=== PATIENT | male | born 1980 | race Caucasian/White ===

== ENCOUNTER 2016-11-05 08:20 | Emergency (ER) | payer OTHER ==
--- NOTE | 2016-11-05 08:54 | ED ORDER SUMMARY ---
..... Patient: CLYDE CHUNG OrderSheet [facility] VisitID: [id number] [place] [address] 36y, M Registration Date/Time: 11/05/2016 ORDER SHEET Weight: 86.1 kg (stated) Allergies: No Known Drug Allergy GENERAL ORDERS: MEDICATION ORDERS: Amoxicillin PO 500 mg (NOW) (08:52 11/05/2016 Katy AGUIRRE) (8:58 Vincenzo R.N.) Zofran ODT PO 8 mg (NOW) (08:53 11/05/2016 Katy AGUIRRE) (8:58 Vincenzo R.N.) IV FLUIDS: ORDER SHEET NOTES: [Electronically signed by Josh Swann R.N. (09:04 11/05/2016)] [Electronically signed by Pooja Stiles MD (09:10 11/05/2016)] [Electronically locked/signed by Josh Swann R.N. (09:04 11/05/2016)]
--- NOTE | 2016-11-05 08:54 | ED NURSING NOTES ---
Clinical Report - Nurses [facility] [address] [place] [address] 11/05/2016 8:23 Patient: CLYDE CHUNG TRIAGE Triage time 0831 AM. Chief Complaint: LEFT LOWER TOOTHACHE. Alert. No acute distress. SEPSIS SCREEN: Sepsis Screen. Negative (no infection suspected/documented). --08:35 Josh Swann R.N. 08:30 11/05/16. BP: 148/81. HR: 99. RR: 16. O2 saturation: 99% on room air. Temp: 97.7 F. Pain level now: 06/14. --08:35 Josh Swann R.N. Weight: 86.1 kg stated. Height/Length: 75 inches Per Patient. BMI: 23.7. --08:30 Josh Swann R.N. Medications Adderall XR Oral. --08:34 Josh Swann R.N. Allergies No Known Drug Allergy. --08:34 Josh Swann R.N. History Arrived by private vehicle. Historian: patient. Unaccompanied. This started yesterday. ( Patient states that he broke one of his left lower molars a while ago and was told by his dentist that the tooth needed to be pulled. Patient admits to procrastinating and now an abscess has formed in that area. Patient states that he could not get a dental appointment until Sunday.). PAST MEDICAL HX: Dental caries. Abscess. SOCIAL HX: Heavy tobacco smoker (cigarette)- less than 1 pack per day. Regular alcohol use. FALL RISK ASSESSMENT: Fall risk assessment completed. No fall risk identified. NUTRITIONAL RISK ASSESSMENT: The nutritional risk assessment revealed no deficiencies. FUNCTIONAL ASSESSMENT: Functional assessment: no impairments noted. LEARNING NEEDS ASSESSMENT: The learning needs assessment revealed no barriers. SKIN INTEGRITY ASSESSMENT: Skin integrity risk assessment completed. No skin integrity risk identified. --08:35 Josh Swann R.N. PROBLEMS: no known problems. ADDITIONAL SURGERIES: Back Surgery. Dental Surgery. Hand Surgery. --08:34 Josh Swann R.N. PHYSICAL ASSESSMENT GENERAL / NEURO / PSYCH: Alert. Oriented X 4. Appears in no acute distress. HEENT: Pupils equal, round and reactive to light. Pharynx within normal limits. Voice within normal limits. Dental tenderness. Dental decay. Mucous membranes are pink. RESPIRATORY: Respirations not labored. CVS: Capillary refill less than 2 seconds. SKIN: Skin is warm and dry. Normal skin turgor. --08:35 Josh Swann R.N. Ambulatory to room. --08:35 Josh Swann R.N. NURSING PROGRESS NOTES The plan of care for this patient has been created. Head of bed elevated. Call light placed in reach. Bed placed in lowest position. Brakes of bed on. --08:40 Josh Swann R.N. 08:58 11/05/2016 Amoxicillin PO Capsules 500 mg given. Allergies verified and confirmed 5 rights. --08:58 Josh Swann R.N. 08:58 11/05/2016 Zofran ODT (Ondansetron) PO Oral Disintegrating Tablets 8 mg given. Allergies verified and confirmed 5 rights. --08:58 Josh Swann R.N. DISPOSITION / DISCHARGE Departure time: 0902 AM. Condition at departure: improved. The goals identified in the patient's plan of care were met. No learning barriers present. Discharge instructions provided and reviewed with the patient. Reviewed medication(s) side effects, precautions, dosing and course information. Reviewed referral to a dentist. Patient verbalized understanding. Written instructions provided in [place]. The patient was discharged home and unaccompanied at time of discharge. He left the Emergency Department ambulatory and via private vehicle. Patient driving. FALL RISK ASSESSMENT: Fall risk assessment completed. No fall risk identified. --09:03 Josh Swann R.N. Locked/Released at 11/05/2016 9:04 by Josh Swann R.N.
--- NOTE | 2016-11-05 08:54 | ED NURSING NOTES ---
Clinical Report - Nurses [facility] [address] [place] [address] 11/05/2016 8:23 Patient: CLYDE CHUNG TRIAGE Triage time 0831 AM. Chief Complaint: LEFT LOWER TOOTHACHE. Alert. No acute distress. SEPSIS SCREEN: Sepsis Screen. Negative (no infection suspected/documented). --08:35 Josh Swann R.N. 08:30 11/05/16. BP: 148/81. HR: 99. RR: 16. O2 saturation: 99% on room air. Temp: 97.7 F. Pain level now: 06/14. --08:35 Josh Swann R.N. Weight: 86.1 kg stated. Height/Length: 75 inches Per Patient. BMI: 23.7. --08:30 Josh Swann R.N. Medications Adderall XR Oral. --08:34 Josh Swann R.N. Allergies No Known Drug Allergy. --08:34 Josh Swann R.N. History Arrived by private vehicle. Historian: patient. Unaccompanied. This started yesterday. ( Patient states that he broke one of his left lower molars a while ago and was told by his dentist that the tooth needed to be pulled. Patient admits to procrastinating and now an abscess has formed in that area. Patient states that he could not get a dental appointment until Sunday.). PAST MEDICAL HX: Dental caries. Abscess. SOCIAL HX: Heavy tobacco smoker (cigarette)- less than 1 pack per day. Regular alcohol use. FALL RISK ASSESSMENT: Fall risk assessment completed. No fall risk identified. NUTRITIONAL RISK ASSESSMENT: The nutritional risk assessment revealed no deficiencies. FUNCTIONAL ASSESSMENT: Functional assessment: no impairments noted. LEARNING NEEDS ASSESSMENT: The learning needs assessment revealed no barriers. SKIN INTEGRITY ASSESSMENT: Skin integrity risk assessment completed. No skin integrity risk identified. --08:35 Josh Swann R.N. PROBLEMS: no known problems. ADDITIONAL SURGERIES: Back Surgery. Dental Surgery. Hand Surgery. --08:34 Josh Swann R.N. PHYSICAL ASSESSMENT GENERAL / NEURO / PSYCH: Alert. Oriented X 4. Appears in no acute distress. HEENT: Pupils equal, round and reactive to light. Pharynx within normal limits. Voice within normal limits. Dental tenderness. Dental decay. Mucous membranes are pink. RESPIRATORY: Respirations not labored. CVS: Capillary refill less than 2 seconds. SKIN: Skin is warm and dry. Normal skin turgor. --08:35 Josh Swann R.N. Ambulatory to room. --08:35 Josh Swann R.N. NURSING PROGRESS NOTES The plan of care for this patient has been created. Head of bed elevated. Call light placed in reach. Bed placed in lowest position. Brakes of bed on. --08:40 Josh Swann R.N. 08:58 11/05/2016 Amoxicillin PO Capsules 500 mg given. Allergies verified and confirmed 5 rights. --08:58 Josh Swann R.N. 08:58 11/05/2016 Zofran ODT (Ondansetron) PO Oral Disintegrating Tablets 8 mg given. Allergies verified and confirmed 5 rights. --08:58 Josh Swann R.N. DISPOSITION / DISCHARGE Departure time: 0902 AM. Condition at departure: improved. The goals identified in the patient's plan of care were met. No learning barriers present. Discharge instructions provided and reviewed with the patient. Reviewed medication(s) side effects, precautions, dosing and course information. Reviewed referral to a dentist. Patient verbalized understanding. Written instructions provided in [place]. The patient was discharged home and unaccompanied at time of discharge. He left the Emergency Department ambulatory and via private vehicle. Patient driving. FALL RISK ASSESSMENT: Fall risk assessment completed. No fall risk identified. --09:03 Josh Swann R.N. Locked/Released at 11/05/2016 9:04 by Josh Swann R.N.
--- NOTE | 2016-11-05 08:54 | ED ORDER SUMMARY ---
..... Patient: CLYDE CHUNG OrderSheet [facility] VisitID: [id number] [place] [address] 36y, M Registration Date/Time: 11/05/2016 ORDER SHEET Weight: 86.1 kg (stated) Allergies: No Known Drug Allergy GENERAL ORDERS: MEDICATION ORDERS: Amoxicillin PO 500 mg (NOW) (08:52 11/05/2016 Katy AGUIRRE) (8:58 Vincenzo R.N.) Zofran ODT PO 8 mg (NOW) (08:53 11/05/2016 Katy AGUIRRE) (8:58 Vincenzo R.N.) IV FLUIDS: ORDER SHEET NOTES: [Electronically signed by Josh Swann R.N. (09:04 11/05/2016)] [Electronically signed by Pooja Stiles MD (09:10 11/05/2016)] [Electronically locked/signed by Josh Swann R.N. (09:04 11/05/2016)]
--- NOTE | 2016-11-05 08:54 | ED CLINICAL REPORT ---
Clinical Report - Physicians/Mid Levels [facility] [address] [place] [address] 11/05/2016 8:23 Patient: CLYDE CHUNG Time Seen: 08:31. Arrived- By private vehicle. Historian- patient. HISTORY OF PRESENT ILLNESS Chief Complaint: DENTAL PAIN. This started several days ago, but has been going on for weeks, to a lesser degree and is still present. Pain described as moderate. No sore throat, mouth sores, nasal discharge or congestion or ear pain. No swollen face or facial pain. He has had toothache, swelling of the jaw and jaw pain. Similar symptoms previously: Recent medical care: ( Pt does state that he has an appt with his dentist on 11/07/16.). Not recently seen/assessed. REVIEW OF SYSTEMS No fever, eye discomfort, cough, difficulty breathing or chest pain. No diarrhea, abdominal pain, difficulty with urination, headache or fainting episodes. No joint pain, skin rash or enlarged lymph nodes. The patient has had nausea and vomiting. All systems otherwise negative, except as recorded above. PAST HISTORY Problems: Dental Caries. Abscess. Additional Surgeries: Back Surgery. Dental Surgery. Hand Surgery. Medications: Adderall XR Oral. Allergies: No Known Drug Allergy. SOCIAL HISTORY Smoker- current status unknown. Alcohol use. No drug use. ADDITIONAL NOTES The nursing notes have been reviewed. PHYSICAL EXAM Vital Signs: 11/05/2016 08:30 BP: 148/81. HR: 99. RR: 16. O2 saturation: 99%. Temp: 97.7 F. Pain level now: 8/10. Have been reviewed. Appearance: Alert. No acute distress. Head: Normal external inspection. Eyes: Pupils equal, round and reactive to light. Conjunctivae and eyelids normal. ENT: Severe, localized dental decay with gingival tenderness, induration and swelling. Nose normal. Lips normal. Gums normal. Neck: Normal inspection. Neck supple. Respiratory: No respiratory distress. Skin: Normal skin color. No rash. Normal skin turgor. Extremities: Extremities exhibit normal ROM. Neuro: Oriented X 3. No motor deficit. No sensory deficit. LABS, X-RAYS, AND EKG Pulse Oximetry: 11/05/2016 08:30 O2 saturation: 99%. (FIO2 - room air). Interpretation: normal. PROGRESS AND PROCEDURES Course of Care: Pt was given amoxicillin and Zofran. He is encouraged to keep his dental appointment. No emergent condition identified. Patient counseled in person regarding the patient's stable condition, diagnosis and need for follow-up. Concerns were addressed. Old medical records reviewed. Disposition: Discharged. Condition: stable. CLINICAL IMPRESSION Periapical dental abscess. No sinus tract or Loi's angina. INSTRUCTIONS Drink plenty of fluids. Warnings: GENERAL WARNINGS: Return or contact your physician immediately if your condition worsens or changes unexpectedly, if not improving as expected, or if other problems arise. Your Current Medications: CONTINUE TAKING THE FOLLOWING MEDICATIONS: Adderall XR Oral. Prescription Medications: Hydrocodone/APAP 5mg / 325mg: take 1-2 orally every 6 hours as needed for pain. Dispense twenty (20). No refill. Zofran (orally disintegrating tablets) 4 mg: take 1-2 orally every 6 hours as needed for nausea. Dispense twenty (20). No refill. Substitution is permissible. Amoxicillin 500 mg tablets: take 1 orally every 8 hours for 10 days. No refills. Follow-up: Follow up with a dentist as scheduled. Understanding of the discharge instructions verbalized by patient. (Electronically signed by Pooja Stiles MD 11/05/2016 9:10)
--- NOTE | 2016-11-05 09:10 | ED DISCHARGE INSTRUCTIONS ---
Patient: CLYDE CHUNG General Instructions [facility] VisitID: [id number] [place] [address] 36y, M Registration Date/Time: 11/05/2016 Periapical dental abscess. No sinus tract or Loi's angina. INSTRUCTIONS Drink plenty of fluids. Warnings: GENERAL WARNINGS: Return or contact your physician immediately if your condition worsens or changes unexpectedly, if not improving as expected, or if other problems arise. Your Current Medications: CONTINUE TAKING THE FOLLOWING MEDICATIONS: Adderall XR Oral. Prescription Medications: Hydrocodone/APAP 5mg / 325mg: take 1-2 orally every 6 hours as needed for pain. Dispense twenty (20). No refill. Zofran (orally disintegrating tablets) 4 mg: take 1-2 orally every 6 hours as needed for nausea. Dispense twenty (20). No refill. Substitution is permissible. Amoxicillin 500 mg tablets: take 1 orally every 8 hours for 10 days. No refills. Follow-up: Follow up with a dentist as scheduled. Understanding of the discharge instructions verbalized by patient. ADDITIONAL INFORMATION Dental Abscess A dental abscess is an infection of the tooth socket. It often starts with a crack or cavity in the tooth. A pocket of pus forms between the tooth and the bone. The infection causes pain and swelling of the gum, cheek or jaw. The pain is often made worse by drinking hot or cold fluids, or biting on hard foods. Pain may be felt in the facial sinus or in the ear. A severe infection can interfere with swallowing and breathing. In the emergency department or clinic, you will be started on an antibiotic. However, final treatment requires drainage of the pus. This can be done by removing the tooth or performing a root canal. A root canal is done by an oral surgeon and involves drilling an opening in the tooth to drain the pus. After the infection has healed, a crown is placed over the tooth. Home care The following guidelines will help you care for your abscess at home: Avoid hot and cold foods and liquids since your tooth may be sensitive to temperature changes. If your tooth is chipped or cracked, or if there is a large open cavity, applyoil of cloves(available [id number]-jkpodxz in drug stores) directly to the tooth to reduce pain. Some pharmacies carry an axql-djr-kqsjlge "toothache kit". This contains oil of cloves and a paste, which can be applied over the exposed tooth to decrease sensitivity. Apply an ice pack (ice cubes in a plastic bag, wrapped in a towel) over the injured area for 20 minutes every 12 hours the first day for pain relief. Continue this 34 times a day until the pain and swelling goes away. You may use acetaminophen or ibuprofen to control pain, unless another medicine was prescribed. If you have chronic liver or kidney disease or ever had a stomach ulcer or GI bleeding, talk with your doctor before using these medicines. An antibiotic will be prescribed. Take it as directed until completed, even if you are feeling better sooner. Follow-up care Follow up as directed with a dentist or oral surgeon. Even though your pain may improve with the treatment given today, only a dentist or oral surgeon can provide full treatment for this problem. When to seek medical care Get prompt medical attention or contact your doctor if any of the following occur: Your face or eyelid becomes swollen or red Pain worsens or spreads to the neck Fever over 100.4F (38.0C) Unusual drowsiness; headache or stiff neck; weakness, or fainting Pus drains from the gum or tooth Difficulty talking, swallowing or breathing Unable to open your mouth wide You have been given the following additional information: Tooth Abscess (Electronically signed by Pooja Stiles MD 11/05/2016 9:10)
--- NOTE | 2016-11-05 09:10 | ED DISCHARGE INSTRUCTIONS ---
Patient: CLYDE CHUNG General Instructions [facility] VisitID: [id number] [place] [address] 36y, M Registration Date/Time: 11/05/2016 Periapical dental abscess. No sinus tract or Loi's angina. INSTRUCTIONS Drink plenty of fluids. Warnings: GENERAL WARNINGS: Return or contact your physician immediately if your condition worsens or changes unexpectedly, if not improving as expected, or if other problems arise. Your Current Medications: CONTINUE TAKING THE FOLLOWING MEDICATIONS: Adderall XR Oral. Prescription Medications: Hydrocodone/APAP 5mg / 325mg: take 1-2 orally every 6 hours as needed for pain. Dispense twenty (20). No refill. Zofran (orally disintegrating tablets) 4 mg: take 1-2 orally every 6 hours as needed for nausea. Dispense twenty (20). No refill. Substitution is permissible. Amoxicillin 500 mg tablets: take 1 orally every 8 hours for 10 days. No refills. Follow-up: Follow up with a dentist as scheduled. Understanding of the discharge instructions verbalized by patient. ADDITIONAL INFORMATION Dental Abscess A dental abscess is an infection of the tooth socket. It often starts with a crack or cavity in the tooth. A pocket of pus forms between the tooth and the bone. The infection causes pain and swelling of the gum, cheek or jaw. The pain is often made worse by drinking hot or cold fluids, or biting on hard foods. Pain may be felt in the facial sinus or in the ear. A severe infection can interfere with swallowing and breathing. In the emergency department or clinic, you will be started on an antibiotic. However, final treatment requires drainage of the pus. This can be done by removing the tooth or performing a root canal. A root canal is done by an oral surgeon and involves drilling an opening in the tooth to drain the pus. After the infection has healed, a crown is placed over the tooth. Home care The following guidelines will help you care for your abscess at home: Avoid hot and cold foods and liquids since your tooth may be sensitive to temperature changes. If your tooth is chipped or cracked, or if there is a large open cavity, applyoil of cloves(available tqhn-cnl-aesftnq in drug stores) directly to the tooth to reduce pain. Some pharmacies carry an okav-mde-kelfdwj "toothache kit". This contains oil of cloves and a paste, which can be applied over the exposed tooth to decrease sensitivity. Apply an ice pack (ice cubes in a plastic bag, wrapped in a towel) over the injured area for 20 minutes every 12 hours the first day for pain relief. Continue this 34 times a day until the pain and swelling goes away. You may use acetaminophen or ibuprofen to control pain, unless another medicine was prescribed. If you have chronic liver or kidney disease or ever had a stomach ulcer or GI bleeding, talk with your doctor before using these medicines. An antibiotic will be prescribed. Take it as directed until completed, even if you are feeling better sooner. Follow-up care Follow up as directed with a dentist or oral surgeon. Even though your pain may improve with the treatment given today, only a dentist or oral surgeon can provide full treatment for this problem. When to seek medical care Get prompt medical attention or contact your doctor if any of the following occur: Your face or eyelid becomes swollen or red Pain worsens or spreads to the neck Fever over 100.4F (38.0C) Unusual drowsiness; headache or stiff neck; weakness, or fainting Pus drains from the gum or tooth Difficulty talking, swallowing or breathing Unable to open your mouth wide You have been given the following additional information: Tooth Abscess (Electronically signed by Pooja Stiles MD 11/05/2016 9:10)
--- NOTE | 2016-11-05 09:10 | ED MED RECONCILIATION SUMMARY ---
Patient: CLYDE CHUNG Medication Reconciliation Report [facility] VisitID: [id number] [place] [address] 36y, M Registration Date/Time: 11/05/2016 Weight: 86.1 kg Height/Length: 75 in. BMI: 23.7 ALLERGIES: No Known Drug Allergy The patient's Home Medications are listed below: CONTINUE TAKING THE FOLLOWING MEDICATIONS: Adderall XR Oral The source(s) of the original Home Medication information: Not obtained. The following Medications were given to the patient in the Emergency Department: Amoxicillin [PO] PO 500 mg, administered: 11/05/2016 8:58:00 AM Zofran ODT [PO] PO 8 mg, administered: 11/05/2016 8:58:00 AM The following Medications were prescribed to the patient: Hydrocodone/APAP 5mg / 325mg: take 1-2 orally every 6 hours as needed for pain. Dispense twenty (20). No refill. -- Pooja Stiles MD Zofran (orally disintegrating tablets) 4 mg: take 1-2 orally every 6 hours as needed for nausea. Dispense twenty (20). No refill. Substitution is permissible. -- Pooja Stiles MD Amoxicillin 500 mg tablets: take 1 orally every 8 hours for 10 days. No refills. -- Pooja Stiles MD
--- NOTE | 2016-11-05 09:10 | ED MAR SUMMARY ---
..... Medication Administration Record [facility] [address] [place] [address] Patient: CLYDE CHUNG Visit ID: [id number] 36y, M Weight: 86.1 kg Height/Length: 75 in BMI: 23.7 ALLERGIES: No Known Drug Allergy Given 08:11/05/2016 Josh Swann, R.N. Medication Administered: AMOXICILLIN [PO], Dose: 500 mg Capsules PO. Medication Ordered: Amoxicillin PO 500 mg (NOW). Given 08:11/05/2016 Josh Swann, R.N. Medication Administered: ZOFRAN ODT [PO] (ONDANSETRON), Dose: 8 mg Oral Disintegrating Tablets PO. Medication Ordered: Zofran ODT PO 8 mg (NOW).
--- NOTE | 2016-11-05 09:10 | ED MED RECONCILIATION SUMMARY ---
Patient: CLYDE CHUNG Medication Reconciliation Report [facility] VisitID: [id number] [place] [address] 36y, M Registration Date/Time: 11/05/2016 Weight: 86.1 kg Height/Length: 75 in. BMI: 23.7 ALLERGIES: No Known Drug Allergy The patient's Home Medications are listed below: CONTINUE TAKING THE FOLLOWING MEDICATIONS: Adderall XR Oral The source(s) of the original Home Medication information: Not obtained. The following Medications were given to the patient in the Emergency Department: Amoxicillin [PO] PO 500 mg, administered: 11/05/2016 8:58:00 AM Zofran ODT [PO] PO 8 mg, administered: 11/05/2016 8:58:00 AM The following Medications were prescribed to the patient: Hydrocodone/APAP 5mg / 325mg: take 1-2 orally every 6 hours as needed for pain. Dispense twenty (20). No refill. -- Pooja Stiles MD Zofran (orally disintegrating tablets) 4 mg: take 1-2 orally every 6 hours as needed for nausea. Dispense twenty (20). No refill. Substitution is permissible. -- Pooja Stiles MD Amoxicillin 500 mg tablets: take 1 orally every 8 hours for 10 days. No refills. -- Pooja Stiles MD
--- NOTE | 2016-11-05 09:10 | ED MAR SUMMARY ---
..... Medication Administration Record [facility] [address] [place] [address] Patient: CLYDE CHUNG Visit ID: [id number] 36y, M Weight: 86.1 kg Height/Length: 75 in BMI: 23.7 ALLERGIES: No Known Drug Allergy Given 08:11/05/2016 Josh Swann, R.N. Medication Administered: AMOXICILLIN [PO], Dose: 500 mg Capsules PO. Medication Ordered: Amoxicillin PO 500 mg (NOW). Given 08:11/05/2016 Josh Swann, R.N. Medication Administered: ZOFRAN ODT [PO] (ONDANSETRON), Dose: 8 mg Oral Disintegrating Tablets PO. Medication Ordered: Zofran ODT PO 8 mg (NOW).
== END 2016-11-05 09:02 | disposition home or self-care (01) ==
LOC: ED SRH 08:20
DX: K04.7 Periapical abscess without sinus (principal); F17.210 Nicotine dependence, cigarettes, uncomplicated